=== PATIENT | female | born 2000 | race American Indian/Alaskan Native ===

== ENCOUNTER → 2025-05-20 | Outpatient (CLI) | payer MEDICAID, SELFPAY ==
--- NOTE | 2025-05-20 | XR_ITS ---
EXAMINATION: Thyroid sonography complete TECHNIQUE: Grayscale sonographic images thyroid lobes Date and time: May 20, 2025, 1133 hours, comparison June 08, 2024 INDICATIONS: Personal history of thyroid cancer thyroidectomy 2017 FINDINGS: No thyroid tissue Lymph nodes in the soft tissue neck, on the right side 8 x 5 mm, 13 x 12 mm, on the left side 16 x 9 mm, 14 x 7 mm, 20 x 9 mm IMPRESSION: Significant cervical lymphadenopathy Consider CT soft tissue neck repeat post intravenous contrast
== END | disposition home or self-care (01) ==
LOC: CDIM 11:15
PROVIDERS: PCP Nurse Practitioner Family; Referring Provider Nurse Practitioner Family; Visit Provider Nurse Practitioner Family
DX: R59.0 Localized enlarged lymph nodes (principal); C73 Malignant neoplasm of thyroid gland
CPT/HCPCS: 76536

== ENCOUNTER 2025-06-04 13:14 | Outpatient (RCR) | payer MEDICAID, SELFPAY ==
--- NOTE | 2025-06-04 14:13 | CTCFLWUP_ITS ---
[facility] [address] [place], [place] [address] FOLLOW-UP NOTE Date: 06/04/2025 MR#: [id number] Name: ANDRA ALICEA : 2000 Dx: C73 Malignant neoplasm of thyroid gland Identification. Patient with stage I thyroid cancer papillary type status post total thyroidectomy 04/26/2017 followed by 100 mCi of radioiodine at [facility] when she was 16 years old. Placed on thyroid replacement but tumor recurred in the right neck with FNA what 1416 showing metastatic papillary carcinoma. Patient subsequent underwent right neck dissection performed 09/01/2018 showing 1 of 21 lymph nodes positive right sided of metastatic papillary carcinoma. No adjuvant therapy except thyroid replacement recommended according to patient and mother. Whole-body scan after 4 mCi showed no sign of mets 12/31/2019. Ultrasound 12/27/2023 showed small lymph nodes and CT neck 04/17/2024 showed tiny nonspecific nodes nonspecific and repeat in 6 months recommended. Ultrasound 06/08/2024 showed no soft tissue or soft tissue tumor mass in the thyroid bed. Repeat ultrasound ordered by Audrey Bernard to [facility] showed significant lymphadenopathy in the neck. As I see her today patient states that she is having headaches but otherwise feels all right. I do not feel any pathologically enlarged lymph nodes in her neck today. A#!. History of papillary thyroid cancer surgery and postop radioiodine age 16 in 2017 [facility] in [place]. #2. Currently on 220 mcg of Synthroid according to the patient prescribed by [facility] [[email or web address] Most recent THV available for review had very high TSH of 42.4 and thyroid antibody was less than 1.0 #3. Recent ultrasound showed cervical adenopathy more noticeable than the prior 1. #4. will see her back in [address] of the neck with contrast and thyroid functions and thyroglobulin markers will also be checked Electronically signed by: Chele Montano M.D. 06/04/2025 2:11 PM
== END 2025-06-16 23:59 | disposition home or self-care (01) ==
LOC: SCTC 13:14
PROVIDERS: PCP Nurse Practitioner Family; Referring Provider Nurse Practitioner Family; Visit Provider Radiology Therapeutic Radiology
DX: Z08 Encounter for follow-up examination after completed treatment for malignant neoplasm (principal); Z85.850 Personal history of malignant neoplasm of thyroid; E89.0 Postprocedural hypothyroidism; R51.9 Headache, unspecified; R59.0 Localized enlarged lymph nodes; Z79.890 Hormone replacement therapy; Z92.3 Personal history of irradiation
CPT/HCPCS: 99213; G0463

== ENCOUNTER 2025-06-09 14:49 | Emergency (ER) | payer MEDICAID, SELFPAY ==
[2025-06-09 15:32] VITALS: BP 139/90; PULSE 78; RESP 16; TEMP 36.8; O2SAT 99; BMI 38.1
--- NOTE | 2025-06-09 15:46 | PD.EDRME ---
Rapid Medical Screening Exam [facility] Arrival date/time: 06/09/25 14:49 This is a 25-year-old female that comes into the emergency room with complaints of abdominal pain and nausea. Patient states that started today. Patient states that she has had this pain in the past and it went away. Patient denies any other complaints. I have greeted and performed a focused initial assessment of this patient. Initial appropriate labs ordered at this time. A comprehensive ED assessment and evaluation of the patient and analysis of all test and completion of medical decision making process will be conducted by additional ED provider. Chief Complaint: Abdominal Pain Time Seen by Provider: 06/09/25 15:31 Vital signs: Vital Signs Temperature 98.3 F 06/09/25 15:32 Pulse Rate 78 06/09/25 15:32 Respiratory Rate 16 06/09/25 15:32 Blood Pressure 139/90 H 06/09/25 15:32 Pulse Oximetry (%) 99 06/09/25 15:32 Oxygen Delivery Method Room Air 06/09/25 15:32 Exam: Alert and oriented, breathing even and unlabored, skin warm and dry Clinical Impression: Abdominal pain
[2025-06-09 16:05] LABS: Basophils # (Auto) 0.1 Thou/mm3 (0.0-0.2); Basophils % (Auto) 1 % (0-2.5); Eosinophils # (Auto) 0.2 Thou/mm3 (0.0-0.5); Eosinophils % (Auto) 1 % (0-10); Hematocrit 38.2 % (36.0-46.0); Hemoglobin 12.6 g/dL (12.0-16.0); Immature Granulocytes Auto 0.04 Thou/mm3 (0.00-0.00); Lymphocytes # (Auto) 2.8 Thou/mm3 (1.0-4.8); Lymphocytes % (Auto) 27 % (10-50); Mean Corpuscular HGB Conc 33.0 g/dl (31.0-37.0); Mean Corpuscular Hemoglobin 29.4 pg (25.0-35.0); Mean Corpuscular Volume 89 fL (80-100); Monocytes # (Auto) 0.8 Thou/mm3 (0.0-0.8); Monocytes % (Auto) 8 % (0-12); Neutrophils # (Auto) 6.7 Thou/mm3 (1.8-7.7); Neutrophils % (Auto) 63 % (37-80); Nucleated Red Blood Cell # 0.00 Thou/mm3 (0.00-0.00); Nucleated Red Blood Cell % 0 /100 WBC (0); Platelet Count 277 Thou/mm3 (140-440); RDW Standard Deviation 43.0 fL (36.4-46.3); Red Blood Count 4.29 Miln/mm3 (4.00-5.20); White Blood Count 10.6 Thou/mm3 (3.6-11.0)
[2025-06-09 16:15] LABS: Collection Type, Urine Voided
[2025-06-09 16:29] LABS: Bilirubin,Urine Negative (Negative); Blood,Urine Negative (Negative); Clarity,Urine Clear (Clear/Hazy); Color,Urine Lt-Yellow (Lt Yel-Yel); Culture Indicated,Urine Not Indicated; Glucose, Urine Negative (Negative); HCG Qualitative,Urine Negative; Ketones,Urine Negative (Negative); Leukocyte Esterase,Urine Negative (Negative); Nitrite,Urine Negative (Negative); PH,Urine 5.5 (5.0-7.0); Protein,Urine Negative (Neg - Trace); RBC,Urine 2 /hpf (0-3); Specific Gravity,Urine 1.030 (1.001-1.035); Squamous Epithelial Cell,Urine 1 /hpf (0-5); Urobilinogen,Urine Negative mg/dL (0.0-1.0); WBC,Urine < 1 /hpf (0-5)
[2025-06-09 16:54] LABS: Amphetamine/Methamp Scrn,U Negative (Negative); Barbiturate Screen,Urine Negative (Negative); Benzodiazepines Screen,Urine Negative (Negative); Benzoylecgonine Screen, Ur Negative (Negative); Fentanyl Screen,Urine Negative (Negative); Opiate Screen,Urine Negative (Negative); THC Screen,Urine Negative (Negative)
[2025-06-09 16:58] LABS: Alanine Aminotransferase 14 U/L (10-49); Albumin, Serum 4.8 gm/dL (3.5-5.0); Albumin/Globulin Ratio 2.1 (1.2-2.2); Alkaline Phosphatase 52 U/L (46-116); Anion Gap 9 (7-16); Aspartate Amino Transferase 20 U/L (0-34); BUN/Creatinine Ratio 14 Ratio (12-20); Bilirubin,Total 0.5 mg/dL (0.3-1.2); Blood Urea Nitrogen 11 mg/dL (9-23); Calcium 9.3 mg/dL (8.3-10.6); Calcium (Corrected) 9.3 mg/dL (8.5-10.1); Carbon Dioxide 24.7 mMol/L (20.0-31.0); Chloride 105 mMol/L (98-107); Creatinine (Component) 0.8 mg/dL (0.6-1.3); Estimated Creatinine Clearance 109.9 mL/min (>60); Globulin 2.3 gm/dL (2.3-3.5); Glucose 88 mg/dL (74-106); Lipase 30 U/L (12-53); Osmolality,Calculated 275 (275-295); Potassium 3.6 mMol/L (3.4-5.1); Sodium 139 mMol/L (136-145); Total Protein 7.1 gm/dL (5.7-8.2); eGFR > 60 See Note
--- NOTE | 2025-06-09 19:53 | PD.EDABDPN ---
ED Abdominal Pain RME/HPI General Chief Complaint: Abdominal Pain Stated complaint: ABD PAIN, NAUSEA Time seen by provider: 06/09/25 15:31 Arrival date/time: 06/09/25 14:49 RME / HPI RME / HPI narrative: 06/09/25 14:49 This is a 25-year-old female that comes into the emergency room with complaints of abdominal pain and nausea. Patient states that started today. Patient states that she has had this pain in the past and it went away. Patient denies any other complaints. I have greeted and performed a focused initial assessment of this patient. Initial appropriate labs ordered at this time. A comprehensive ED assessment and evaluation of the patient and analysis of all test and completion of medical decision making process will be conducted by additional ED provider. Dr. Segal?s Main ED Evaluation: 25yo female presents to the ED for a chief complaint of epigastric/RUQ pain x today. No radiation or migration. Patient states her pain worsens after she eats. Reports associated nausea. Denies fever, chills, vomiting, diarrhea, or any other associated symptoms. NKA. Related Data Home Medications ?Medication ?Instructions ?Recorded ?Confirmed levothyroxine 200 mcg tablet 200 mcg 1XD 08/29/22 08/29/22 vit no.95-ferrous 1 tab PO 1XD 08/29/22 08/29/22 fumarate 28 mg-folic acid 800 mcg tablet () Previous Rx's ?Medication ?Instructions ?Recorded docusate sodium 100 mg capsule 100 mg PO BID #60 caps 08/30/22 (Colace) ibuprofen 800 mg tablet 800 mg PO Q6H PRN pain #90 tabs 08/30/22 lanolin 50 % topical ointment 1 applic topical TID PRN skin 08/30/22 irritation #15 tubes ibuprofen 400 mg tablet 400 mg PO Q8H #14 tabs 06/05/23 dicyclomine 20 mg tablet 20 mg PO QID PRN abdominal pain 06/09/25 #20 tabs ondansetron 4 mg disintegrating 4 mg PO Q6H PRN nausea and 06/09/25 tablet vomiting #20 tabs Allergies Allergy/AdvReac Type Severity Reaction Status Date / Time No Known Allergies Allergy Verified 06/09/25 14:51 Review of Systems Review of Systems Systems Reviewed: All systems reviewed, normal except as documented Past Medical History Past Medical History NEUROLOGIC: Negative Neurological Disorders CARDIAC: Negative Cardiac Disorders or Congestive Heart Failure RESPIRATORY: Negative Chronic Obstructive Pulmonary Disease (COPD) or Asthma GASTROINTESTINAL: Negative Gastrointestinal Disorders, Hepatitis or Colorectal Cancer GENITOURINARY: Negative Genitourinary Disorders, Renal Disease or Prostate Cancer REPRODUCTIVE: Negative Breast Cancer, Pelvic Inflammatory Disease or Testicular Cancer MUSCULOSKELETAL: Negative Musculoskeletal Disorders or Bone Cancer ENT: Negative Cataracts, Glaucoma, Blind, Retinal Detachment, Macular Degeneration, Ear Infection, Deafness or Eye Prosthesis ENDOCRINE: Positive Endocrine Disorders (thyroid CA ,), Hypothyroidism (caused by thyroid cancer.) and Thyroid Cancer; Negative Diabetes Mellitus Type 1, Diabetes Mellitus Type 2, Hypoglycemia, Yaniv's Syndrome, King's Disease, Hyperthyroidism, Parathyroid Disease, Pituitary Disease, Systemic Lupus Erythematosus, Syndrome of Inappropriate Antidiuretic Hormone (SIADH), Adrenal Disease or Graves' Disease HEMATOLOGIC: Negative Blood Disorders or Sickle Cell Disease PSYCHO/SOCIAL: Positive Depression (taking cymbalta, stopped druing pregancy) and Anxiety OTHER HISTORY: Positive Hospitalization (2017 and 2019), Shingles (as a child), Radiation Therapy (2019), Chicken Pox and Cancer (thryoid CA); Negative Autoimmune Disease, Down Syndrome, Developmental Delay, Falls, Blood Transfusions, Blood Transfusion Reaction, Anesthesia Reactions, Organ Transplant, Chemotherapy, Hyperbaric Therapy, MRSA, VRSA, Vancomycin-Resistant Enterococci, Human Immunodeficiency Virus (HIV), Measles, Mumps, Rubella (Divehi Measles), Pertussis, Clostridium Difficile, Breast Cancer, Cervical Cancer, Colorectal Cancer, Lung Cancer, Ovarian Cancer, Prostate Cancer or Testicular Cancer Family History FAMILY HISTORY: Positive Family Cancer (thyroid, head and neck cancer); Negative Family Psychiatric Problems, Family Respiratory Disorders, Family Cardiac Disorders, Family Gastrointestinal Problems, Family Surgery or Family Anesthesia Reaction Surgical History SURGICAL: Positive Endocrine Surgery (cancer came back, removing Cancerous cells. 2019) and Thyroidectomy (2017,); Negative Cardiac Surgery, Ear Surgery, Abdominal Surgery, Nephrectomy, Joint Replacement, Neurologic Surgery, Mastectomy, Section, Vasectomy or Organ Transplant Social History SMOKING STATUS: Never smoker SUBSTANCE USE: marijuana ED Exam Narrative Physical exam: History patient is a generally patient is alert and in no obvious distress, heart regular rate and rhythm, lungs clear to auscultation equal bilaterally, abdomen soft bowel sounds present nondistended very mild right upper quadrant abdominal tenderness without rebound or Taylor sign, skin is warm pale and dry Course Quality Measures none Orders Category Date Time Status CBC Stat Lab 06/09/25 15:52 Completed Comprehensive Metabolic Panel Stat Lab 06/09/25 15:52 Completed Drug Screen,Urine Stat Lab 06/09/25 16:10 Completed HCG Qualitative,Urine Stat Lab 06/09/25 16:10 Completed Lipase Stat Lab 06/09/25 15:52 Completed Urinalysis, C/S if Indicated Stat Lab 06/09/25 16:10 Completed Vital Signs Vital signs: Vital Signs Temperature 98.3 F 06/09/25 15:32 Pulse Rate 78 06/09/25 15:32 Respiratory Rate 16 06/09/25 15:32 Blood Pressure 139/90 H 06/09/25 15:32 Pulse Oximetry (%) 99 06/09/25 15:32 Oxygen Delivery Method Room Air 06/09/25 15:32 Abdominal Pain MDM MDM Narrative MDM Narrative:: Scribe Attestation: 06/09/25 - Angela Tan am scribing for and in the presence of Dr. Segal. I interpreted all labs. There is no leukocytosis. No LFT abnormalities. Lipase is normal. Urine is not infected. Kidney function is normal. is negative. Patient may have cholelithiasis but there is no clinical suspicion of cholecystitis or choledocholithiasis. Patient will be given a prescription for Bentyl and Zofran to be used as prescribed. Avoid hot spicy greasy fatty foods. Follow-up with her doctor as needed for further treatment and evaluation. Patient data External records reviewed:: [facility] previous records (Per chart review, patient was seen here on 06/05/23 for flank pain.) Clinical information provided by:: patient Social determinants that could affect healthcare access:: none Patient has the following chronic illnesses:: thyroid CA How is presenting disease/condition affected by chronic disease/condition?: uneffected by Evaluation data The following diagnostics were reviewed and interpreted by me:: lab results Lab and/or radiology exams considered but not ordered:: none Interpretation Summary: See MDM Medications / Prescriptions Medications or Prescriptions considered but not ordered:: none Medication administrations:: none Consultations Consultation(s) initiated? (list below): No Diagnosis Differential diagnosis abdominal pain: other (See MDM) Most likely diagnosis given after review of the tests above:: see clinical impression below Admission Indicated Admission indicated?: not indicated Admission Request Was there a request for admission?: No Disposition Plan Disposition Plan: Discharge Discharge Attestation Discharge Attestation: The patient and all family members were given an opportunity to ask questions and understood the discharge instructions. Discharge instructions specifically effects, indications for sooner follow up or return to the emergency department, and the expected course of current diagnosis. Patient condition: Stable Discharge Plan Plan Patient Disposition: HOME (Self Care) Prescriptions/Referrals Prescriptions/Med Rec: New dicyclomine 20 mg tablet 20 mg PO QID PRN (Reason: abdominal pain) Qty: 20 0RF ondansetron 4 mg tablet,disintegrating 4 mg PO Q6H PRN (Reason: nausea and vomiting) Qty: 20 0RF No Action levothyroxine 200 mcg tablet 200 mcg 1XD Patient Comments: TAKE 1 TABLET BY MOUTH EVERY DAY PNV no.95-ferrous fumarate-FA [] 28 mg iron- 800 mcg tablet 1 tab PO 1XD Patient Comments: TAKE 1 TABLET BY MOUTH EVERY DAY ibuprofen 800 mg tablet 800 mg PO Q6H MDD 4 PRN (Reason: pain) Qty: 90 0RF docusate sodium [Colace] 100 mg capsule 100 mg PO BID Qty: 60 0RF lanolin 50 % ointment 1 applic topical TID PRN (Reason: skin irritation) Qty: 15 0RF ibuprofen 400 mg tablet 400 mg PO Q8H Qty: 14 0RF Referrals: Juarez Devine PA-C [Primary Care Provider] - In 1 week Problem List Clinical Impression: Abdominal pain Patient/Caregiver Discharge Instructions Education Materials: Abdominal Pain Print Language: Greenlandic Stand Alone Forms: Eleni Award Info., Patient Portal Info Letter
== END 2025-06-09 20:23 | disposition home or self-care (01) ==
PROVIDERS: Nurse Practitioner Family; Emergency Provider Emergency Medicine; PCP Physician Assistant
DX: R10.9 Unspecified abdominal pain (principal)
CPT/HCPCS: 36415; 80053; 80307; 81001; 81025; 83690; 85025; 99282

== ENCOUNTER → 2025-07-01 | Outpatient (CLI) | payer MEDICAID, SELFPAY ==
--- NOTE | 2025-07-01 15:00 | XR_ITS ---
Examination: CT soft tissue neck, with intravenous contrast. 2-D coronal reconstructions. 2-D sagittal reconstructions. Date and time of exam : July 01, 2025, 1521 hours, comparison April 17, 2024 INDICATIONS: Diagnosis thyroid cancer post treatment. CTDI: vol (mGy): 13.5 DLP: (mGycm): 351 Technique: 1.25 mm axial sections of the neck of the obtained. Coronal and sagittal reconstructions have been obtained. Intravenous contrast administered 50 cc Isovue-370. Low dose protocols were performed. One or more of the following dose reduction techniques were used; automated exposure control, adjustment of the mA and/or KV according to patient size, use of iterative reconstruction technique. Findings: Significant maxillary antral sinus disease Symmetrical nasopharynx oropharynx Left carotid triangle lymph node 7 mm Normal larynx No soft tissue mass in the thyroid bed Normal epiglottis IMPRESSION: No recurrent soft tissue mass in the thyroid bed No pathologic cervical lymphadenopathy
[2025-07-01 15:13] LABS: HCG Qualitative,Urine Negative
== END | disposition home or self-care (01) ==
PROVIDERS: PCP Physician Assistant; Referring Provider Radiology Therapeutic Radiology; Visit Provider Radiology Therapeutic Radiology
DX: C73 Malignant neoplasm of thyroid gland (principal); Z32.00 Encounter for pregnancy test, result unknown
CPT/HCPCS: 70491; 81025; A4649; Q9967